=== PATIENT | female | born 1965 | race Caucasian/White ===

== ENCOUNTER 2018-03-19 20:48 | Emergency (ER) | payer OTHER, BC ==
[~2018-03-19] VITALS: Ht 162.6 cm; Wt 83.9 kg
[2018-03-19 21:01] VITALS: BP 151/97
== END 2018-03-20 01:21 | disposition left against medical advice (07) ==
LOC: ER 20:48
DX: R07.9 Chest pain, unspecified (principal); Z53.21 Procedure and treatment not carried out due to patient leaving prior to being seen by health care provider
CPT/HCPCS: 71046; 93005